=== PATIENT | female | born 1965 | race Caucasian/White ===

== ENCOUNTER 2019-12-26 11:13 | Outpatient (CLI) | payer MEDICARE, SELFPAY ==
--- NOTE | ~2019-12-26 | DEXA_ITS ---
Bone Density Report Name: Gillian Obregon Age: 54 Sex: Female Ethnicity: White Date of : 1965 Indication: osteopenia; monitoring treatment; Referring Provider: Estrellita Garza Study: Bone densitometry was performed. Exam Date: December 26, 2019 Accession number: [id number] Bone Density: Region BMD T-score Z-score Classification AP Spine (L1-L4) 0.780 -2.4 -1.4 Osteopenia Femoral Neck (Left) 0.548 -2.7 -1.7 Osteoporosis Total Hip (Left) 0.790 -1.2 -0.6 Osteopenia Total Hip Bilateral Avg 0.778 -1.4 -0.7 Osteopenia Femoral Neck (Right) 0.660 -1.7 -0.7 Osteopenia Total Hip (Right) 0.765 -1.5 -0.8 Osteopenia World Health Organization criteria for BMD impression classify patients as: Normal (T-score at or above -1.0), Osteopenia (T-score between -1.0 and -2.5), or Osteoporosis (T-score at or below -2.5). 10-year Fracture Risk: FRAX not reported because: Some T-score for Spine Total or Hip Total or Femoral Neck at or below -2.5 Previous Exams: Region Exam Age BMD T-score BMD Change BMD Change Date g/cm2 vs Baseline vs Previous AP Spine(L1-L4) 12/26/2019 54 0.780 -2.4 -0.076(-8.9%)* -0.076(-8.9%)* 06/26/2016 50 0.857 -1.7 Total Hip(Left) 12/26/2019 54 0.790 -1.2 0.028(3.7%)* 0.028(3.7%)* 06/26/2016 50 0.762 -1.5 Total Hip(Right) 12/26/2019 54 0.765 -1.5 0.031(4.2%)* 0.031(4.2%)* 06/26/2016 50 0.734 -1.7 *Denotes significance at 95% confidence level, LSC for AP Spine = 0.022 g/cm2, LSC for Total Hip = 0.027 g/cm2 Clinical Information Provided by Patient: Smokes Is being treated for osteoporosis Has used the following medications: Fosamax (i.e. alendronate), Calcium Patient maximum height was 60 Menopause Age: 49 No regular weight bearing exercise Does not regularly consume dairy products Drinks caffeinated beverages Onset of menses at age 13 Number of children 0 Impression: The patient has osteoporosis, based on the Left Femoral Neck T-score. The patient has risk factors, including: smoking. The BMD for the AP Spine(L1-L4) decreased, changing by -8.9% since the last DXA exam. Discussion: SIGNIFICANT BONE LOSS OBSERVED. Adherence to therapy (including calcium and vitamin D intake) should be assessed. If compliance is not a factor, review management and exclusion of secondary causes of bone loss. It is important to ask patients whether they are taking their medications and to encourage continued and appropriate compliance with th
--- NOTE | ~2019-12-26 | MM_ITS ---
EXAMINATION: MM screening justin BI w anika HISTORY: Screening mammogram TECHNIQUE: Craniocaudal and mediolateral oblique 3-D tomosynthesis images were obtained and synthetic 2-D images were generated. CAD analysis was submitted and interpreted. COMPARISON: 08/13/2018, 06/28/2017, 06/26/2016 bilateral digital screening mammogram examinations BREAST PARENCHYMAL COMPOSITION: The breasts are almost entirely fatty. FINDINGS: There is no evidence of suspicious mass, calcification, or architectural distortion to sugg est malignancy in either breast. There has been no suspicious interval change. IMPRESSION: 1. No mammographic evidence of malignancy. 2. Recommend routine screening mammography in one year. BI-RADS Category 1: Negative Reviewed, dictated and finalized at location A.
== END 2019-12-26 11:14 | disposition home or self-care (01) ==
PROVIDERS: PCP Family Medicine; Visit Provider Family Medicine
DX: Z12.31 Encounter for screening mammogram for malignant neoplasm of breast (principal); Z78.0 Asymptomatic menopausal state; M85.88 Other specified disorders of bone density and structure, other site; M81.0 Age-related osteoporosis without current pathological fracture; M85.852 Other specified disorders of bone density and structure, left thigh; M85.851 Other specified disorders of bone density and structure, right thigh
CPT/HCPCS: 77063; 77067; 77080

== ENCOUNTER 2022-04-04 15:10 | Outpatient (CLI) | payer MEDICARE, SELFPAY ==
--- NOTE | ~2022-04-04 | MM_ITS ---
EXAMINATION: MM screening justin BI w anika HISTORY: Screening mammogram TECHNIQUE: Craniocaudal and mediolateral oblique 3-D tomosynthesis images were obtained and synthetic 2-D images were generated. CAD analysis was submitted and interpreted. COMPARISON: 12/26/2019, 08/13/2018, 06/28/2017 bilateral screening mammogram examinations. BREAST PARENCHYMAL COMPOSITION: The breasts are almost entirely fatty. FINDINGS: Approximately 3 x 5 mm likely benign intramammary lymph node in the posterior outer mid rig ht breast. There is no evidence of suspicious mass, calcification, or architectural distortion to sug gest malignancy in either breast. There has been no suspicious interval change. IMPRESSION: 1. No mammographic evidence of malignancy. 2. Recommend routine screening mammography in one year. BI-RADS Category 2: Benign finding(s). Reviewed, dictated and finalized at location A.
--- NOTE | ~2022-04-04 | DEXA_ITS ---
Bone Density Report Name: SARAH FRASER Age: 56 Sex: Female Ethnicity: White Date of : 1965 Indication: osteopenia; monitoring treatment; height loss; postmenopausal Referring Provider: CHUCHO OBRIEN Study: Bone densitometry was performed. Exam Date: April 04, 2022 Accession number: [id number] Bone Density: Region BMD T-score Z-score Classification AP Spine(L1-L4) 0.898 -1.4 -0.2 Osteopenia Femoral Neck (Left) 0.529 -2.9 -1.8 Osteoporosis Total Hip (Left) 0.764 -1.5 -0.7 Osteopenia Femoral Neck (Right) 0.637 -1.9 -0.8 Osteopenia Total Hip (Right) 0.855 -0.7 0.0 Normal Total Hip Mean 0.810 -1.1 -0.4 Osteopenia World Health Organization criteria for BMD impression classify patients as: Normal (T-score at or above -1.0), Osteopenia (T-score between -1.0 and -2.5), or Osteoporosis (T-score at or below -2.5). 10-year Fracture Risk: FRAX not reported because: Some T-score for Spine Total or Hip Total or Femoral Neck at or below -2.5 Treated for osteoporosis Previous Exams: Region Exam Age BMD T-score BMD Change BMD Change Date g/cm2 vs Baseline vs Previous AP Spine (L1-L4) 04/04/2022 56 0.898 -1.4 0.042 (4.9%)# 0.118 (15.1%)# 12/26/2019 54 0.780 -2.4 -0.076 (-8.9%) -0.076 (-8.9%) 06/26/2016 50 0.857 -1.7 Total Hip(Left) 04/04/2022 56 0.764 -1.5 0.002 (0.3%)# -0.026 (-3.3%) 12/26/2019 54 0.790 -1.2 0.028 (3.7%)* 0.028 (3.7%)* 06/26/2016 50 0.762 -1.5 Total Hip(Right) 04/04/2022 56 0.855 -0.7 0.122 (16.6%)# 0.091 (11.9%)# 12/26/2019 54 0.765 -1.5 0.031 (4.2%)* 0.031 (4.2%)* 06/26/2016 50 0.734 -1.7 *Denotes significance at 95% confidence level, LSC for AP Spine = 0.022 g/cm2, LSC for Total Hip = 0.027 g/cm2 # Denotes dissimilar scan types or analysis methods Clinical Information Provided by Patient: Is being treated for osteoporosis Has used the following medications: Prolia (i.e. denosumab), Vitamin D, Calcium Patient maximum height was 61 Menopause Age: 49 No regular weight bearing exercise Drinks caffeinated beverages Onset of menses at age 15 Number of children 0 Impression: The patient has osteoporosis, based on the Left Femoral Neck T-score. No significant bone loss was observed. Discussion: PATIENT UNDER TREATMENT WITH NO SIGNIFICANT BMD LOSS SINCE LAST EXAM. In an untreated patient, BMD typically declines with age. A lack of decline or gain is usually a si
== END 2022-04-04 15:11 | disposition home or self-care (01) ==
PROVIDERS: PCP Family Medicine; Visit Provider Family Medicine
DX: Z12.31 Encounter for screening mammogram for malignant neoplasm of breast (principal); Z78.0 Asymptomatic menopausal state; M85.88 Other specified disorders of bone density and structure, other site; M81.0 Age-related osteoporosis without current pathological fracture; M85.852 Other specified disorders of bone density and structure, left thigh; M85.851 Other specified disorders of bone density and structure, right thigh
CPT/HCPCS: 77063; 77067; 77080

== ENCOUNTER 2023-08-28 09:34 | Outpatient (CLI) | payer MEDICARE, SELFPAY ==
--- NOTE | ~2023-08-28 | MM_ITS ---
EXAMINATION: MM screening justin BI w anika HISTORY: Screening TECHNIQUE: Craniocaudal and mediolateral oblique 3-D tomosynthesis images were obtained and synthetic 2-D images were generated. CAD analysis was submitted and interpreted. COMPARISON: Comparison to multiple prior studies sequentially, with oldest reviewed study dated 04/29. BREAST PARENCHYMAL COMPOSITION: The breasts are almost entirely fatty. FINDINGS: There is no evidence of suspicious mass, calcification, or architectural distortion to sugg est malignancy in either breast. There has been no suspicious interval change. IMPRESSION: 1. No mammographic evidence of malignancy. 2. Recommend routine screening mammography in one year. BI-RADS Category 1: Negative Reviewed, dictated and finalized at location A. T ARTIST
== END 2023-08-28 09:35 | disposition home or self-care (01) ==
LOC: ANHIMG 09:36
PROVIDERS: PCP Family Medicine; Visit Provider Nurse Practitioner Family
DX: Z12.31 Encounter for screening mammogram for malignant neoplasm of breast (principal)
CPT/HCPCS: 77063; 77067

== ENCOUNTER 2024-04-21 11:06 | Outpatient (CLI) | payer MEDICARE, SELFPAY ==
--- NOTE | ~2024-04-21 | DEXA_ITS ---
Bone Density Report Name: SARAH FRASER Age: 58 Sex: Female Ethnicity: White Date of : 1965 Indication: osteopenia; Referring Provider: CHUCHO OBRIEN Study: Bone densitometry was performed. Exam Date: April 21, 2024 Accession number: [id number] Bone Density: Region BMD T-score Z-score Classification AP Spine(L1, L2, L3) 0.981 -0.3 0.9 Normal Femoral Neck (Left) 0.542 -2.8 -1.6 Osteoporosis Total Hip (Left) 0.774 -1.4 -0.5 Osteopenia Femoral Neck (Right) 0.601 -2.2 -1.0 Osteopenia Total Hip (Right) 0.849 -0.8 0.1 Normal Total Hip Mean 0.811 -1.1 -0.2 Osteopenia World Health Organization criteria for BMD impression classify patients as: Normal (T-score at or above -1.0), Osteopenia (T-score between -1.0 and -2.5), or Osteoporosis (T-score at or below -2.5). 10-year Fracture Risk: FRAX not reported because: Some T-score for Spine Total or Hip Total or Femoral Neck at or below -2.5 Previous Exams: Region Exam Age BMD T-score BMD Change BMD Change Date g/cm2 vs Baseline vs Previous AP Spine (L1-L3) 04/21/2024 58 0.981 -0.3 0.128 (15.0%)* 0.057 (6.2%)# 04/04/2022 56 0.924 -0.9 0.071 (8.3%)# 0.134 (16.9%)# 12/26/2019 54 0.790 -2.1 -0.063 (-7.3%) -0.063 (-7.3%) 06/26/2016 50 0.853 -1.5 Total Hip(Left) 04/21/2024 58 0.774 -1.4 0.012 (1.6%) 0.010 (1.3%)# 04/04/2022 56 0.764 -1.5 0.002 (0.3%)# -0.026 (-3.3%) 12/26/2019 54 0.790 -1.2 0.028 (3.7%)* 0.028 (3.7%)* 06/26/2016 50 0.762 -1.5 Total Hip(Right) 04/21/2024 58 0.849 -0.8 0.115 (15.7%)* -0.007 (-0.8%) 04/04/2022 56 0.855 -0.7 0.122 (16.6%)# 0.091 (11.9%)# 12/26/2019 54 0.765 -1.5 0.031 (4.2%)* 0.031 (4.2%)* 06/26/2016 50 0.734 -1.7 *Denotes significance at 95% confidence level, LSC for AP Spine = 0.022 g/cm2, LSC for Total Hip = 0.027 g/cm2 # Denotes dissimilar scan types or analysis methods Clinical Information Provided by Patient: Has used the following medications: Prolia (i.e. denosumab), Vitamin D, Calcium Patient maximum height was 61 Menopause Age: 49 No regular weight bearing exercise Drinks caffeinated beverages Onset of menses at age 16 Number of children 0 Impression: The patient has osteoporosis, based on the Left Femoral Neck T-score. No significant bone loss was observed. Discussion: INCREASED RISK OF FRACTURE. BONE DENSITY IS UNDESIRABLY LOW AT ONE OR MORE SKELETAL SITES, C
== END 2024-04-21 11:07 | disposition home or self-care (01) ==
LOC: ANHIMG 11:07
PROVIDERS: PCP Family Medicine; Visit Provider Family Medicine
DX: Z78.0 Asymptomatic menopausal state (principal); M81.0 Age-related osteoporosis without current pathological fracture; M85.852 Other specified disorders of bone density and structure, left thigh; M85.851 Other specified disorders of bone density and structure, right thigh
CPT/HCPCS: 36415; 77080; 82040; 82310

== ENCOUNTER 2024-05-06 13:45 | Outpatient (CLI) | payer MEDICARE, SELFPAY ==
--- NOTE | ~2024-05-06 | CT_ITS ---
CT Scan of the Chest without Contrast: Clinical Indication: Lung cancer screening, nicotine dependence Technique: Contiguous sections were acquired throughout the chest without intravenous contrast. Dose reduction technique was used on this scan by utilizing automated exposure control and iterative recon struction technique. The dose-length product (DLP) was 225.91 mGy-cm. Findings: There is no evidence of any significant mediastinal, hilar or axillary lymphadenopathy. The coronary artery calcifications are present. There is no evidence of pleural or pericardial effusion. 5 mm groundglass nodule noted in the inferior right upper lobe. Images through the upper abdomen reveal no abnormalities. Impression: Lung RADS 2: Benign appearance. 12 month follow-up screening CT advised. Reviewed, dictated and finalized at location . Impression: Lung RADS 2: Benign appearance. 12 month follow-up screening CT advised.
== END 2024-05-06 13:46 | disposition home or self-care (01) ==
PROVIDERS: PCP Family Medicine; Visit Provider Family Medicine
DX: Z12.2 Encounter for screening for malignant neoplasm of respiratory organs (principal); Z87.891 Personal history of nicotine dependence
CPT/HCPCS: 71271

== ENCOUNTER 2024-09-19 10:51 | Outpatient (CLI) | payer MEDICARE, SELFPAY ==
--- NOTE | ~2024-09-19 | MM_ITS ---
EXAMINATION: MM screening justin BI w anika HISTORY: Screening mammogram TECHNIQUE: Craniocaudal and mediolateral oblique 3-D tomosynthesis images were obtained and synthetic 2-D images were generated. CAD analysis was submitted and interpreted. COMPARISON: 08/28/2023, 04/04/2022 BREAST PARENCHYMAL COMPOSITION:Not Dense. The breasts are almost entirely fatty FINDINGS: No suspicious mass, calcification, or architectural distortion are identified in either izaiah ast to suggest malignancy. There has been no suspicious interval change. IMPRESSION: No mammographic evidence of malignancy. Recommend routine screening mammography in one year. BI-RADS Category 1: Negative Reviewed, dictated and finalized at location . 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
--- OUTSIDE RECORDS SUMMARY | 2024-09-19 10:54 | XMS_ITS | Continuity of Care Document ---
Author Organization [employer] 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 Name Role Phone Poole PT,MPT,ATC, Preet Unavailable Unavai lable Procedures Procedure Date Therapeutic Activities Neuromuscular Re-Ed Therapeutic Exercise Therapeutic Activities Neuromuscular Re-Ed Therapeutic Exercise Progress Note Therapeutic Exercise Therapeutic Activities Neuromuscular Re-Ed Therapeutic Activities Neuromuscular Re-Ed Therapeutic Activities Neuromuscular Re-Ed Therapeutic Activities Neuromuscular Re-Ed Therapeutic Activities Neuromuscular Re-Ed Neuromuscular Re-Ed Therapeutic Activities Therapeutic Exercise Therapeutic Activities Neuromuscular Re-Ed Therapeutic Exercise Therapeutic Activities Neuromuscular Re-Ed Therapeutic Exercise Therapeutic Activities Neuromuscular Re-Ed Therapeutic Exercise Neuromuscular Re-Ed PT Evaluation High Complexity Therapeutic Activities Advance Directives Directive Yes / No Effective Date File Name No Information Encounters Encounter Description Practice Location Reason(s) For Visit Diagnoses Date Provider Providers Copied on Encounter [facility] [address] [facility], [place], [place], [id number], [place] tel:[phone] [place] No Information Dec-3 2 Virgilio Naranjo , [place], [place]. Referring Provider: [address], [place], [address]. tel:[phone] [facility], [place], [place], [id number], [place] tel:[phone] [place] No Information Yg-2 2 Modglin Gregg. . Referring Provider: [address], [place], [address]. tel:[phone] [facility] [facility], [place], [place], [id number], [place] tel:[phone] [place] No Information Dec- 2 Virgilio Naranjo , [place], [place]. Referring Provider: [address], [place], [address]. tel:[phone] [address] [place], [place] [id number] [facility], [place], [place], [id number], [place] tel:[phone] [place] No Information Dec- 2 Virgilio Naranjo [place], [place]. Referring Provider: [address], [place], [address]. tel:[phone] [address] [place], [place] [id number] [facility] [address], [place], [place], [id number], [place] tel:[phone] [place] No Information Dec- 2 Virgilio Naranjo [place], [place]. Referring Provider: [address], [place], [address]. tel:[phone] [address] [place] [address], [address], [place], [place], [id number], [place] tel:[phone] [place] No Information 2 Virgilio Lópezn. , [place], [place]. Referring Provider: [address], [place], [address]. tel:[phone] [address] [place] [address], [address], [id number], [place] tel:[phone] [place] No Information 2 Virgilio Oviedo. , [place], [place]. Referring Provider: [address], [place], [address]. tel:[phone] [address] [place] [address], [address], [id number], tel:[phone] [place] No Information 2 Virgilio Lópezn. , [place], [place]. Referring Provider: [address], [place], [address]. tel:[phone] [address] [place] [address], [address], [id number], [place] tel:[phone] [place] No Information 0 2 Virgilio Oviedo. , [place], [place]. Referring Provider: [address], [place], [address]. tel:[phone] [address] [place] [address], [address], [id number], [place] tel:[phone] [place] No Information 2 Virgilio Ov[place]o. , [place], [place]. Referring Provider: [address], [place], [address]. tel:[phone] [address] [place], [place] [address] [address], [id number], tel:[phone] [place] No Information 2 Virgilio Ov[place]o. , [place], [place]. Referring Provider: [address], [place], [address]. tel:[phone] [facility] [place], [address], [place], [place], [id number], [place] tel:[phone] [place] No Information 2 Virgilio Naranjo [place], [place], [place]. Referring Provider: Jamal Garza, [address] [facility] , [place], [address]. tel:[phone] Family History Family Member Type Diagnosis Age At Onset No Information Payers Payer name Insurance type Covered green party ID Authoriza tioral(s) [facility] Medicare Complete 16 [id number] Social History Type Description Quantity Date Captured Comments Sex Female Smoking Status No Information Chief Complaint And Reason For Visit No Information Reason For Referral Reason For Referral No Information History Of Present Illness Encounter Date Complaint History Of Prese nt Illness No Information Functional Status Date Functional Assessmen t No Information Instructions Date Instruction Additional Infor mation Giving encouragement to exercise Related to Overweight Giving encouragement to exercise Related to Overweight Giving encouragement to exercise Related to Overweight Giving encouragement to exercise Related to Overweight Assessments Type Assessment Date No Information Patient Care Teams Name Effective Dates (start - stop) Status Members No Information
--- OUTSIDE RECORDS SUMMARY | 2024-09-19 10:54 | XMS_ITS ---
Author Organization [facility] Address [facility] [address] [facility] [address] [place] [address] Care Team Providers Care Ore Digger Name Role Phone Jamal Garza MD Primary Care Provider Unavailable Africa De La Torre Unavailable [phone] Migration, Provider Unavailable Unavailable REASON FOR VISIT EMR-Min Medications Medication SIG (Take, Route, Frequency, Duration) Notes Start Date End Date Status amLODIPine Besylate 5 MG Oral 10/10/2023 Active Metoprolol Succinate ER 25 MG Oral 10/10/2023 Active fluvoxaMINE Maleate 100 MG Oral 10/10/2023 Active Prolia *Pick strength-form from [employer] for eRX* 10/10/2023 Active Denta 5000 Plus 1.1 % Dental 10/10/2023 Active Social History Sex Assigned At : Social History Observation Description Sex Assigned At Female Encounters Encounter Location Date Provider Diagnosis [facility] [address] [address] 12/15/2023 Provider Migration Plan Of Treatment Next Appt Details Provider Name:Emmanuelle Sutton, 09/21/2024 10:45:00 AM, [address] [facility] [address] [facility] [address], [place], [address], Progress Notes * RAUL FRASERB:1965 (58 yo F)Acc No.[id number]:12/15/2023 Patient: Osorio SARAH CASTRO :1965 A ge:58 Y S ex:Female Address:[address], [place], [address] Subjective: * Chief Complaints: * E MR-Min * Medical History: * 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 * Surgical History: T onsillectomy and adenoidectomy ([id number]) Tonsilectomy/adenoids 07/29/1971 * Hospitalization/Major Diagno stic Procedure: * Family History: M aternal Uncle: Depressive disorder . S ister: Bipolar disorder . S on: Attention deficit hyperactivity disorder . * Social History: M igrated Social History: M igrated Social History: Alcohol Intake: None 02/14/2023,Tobacco Years: Former smoker 10/13/2020,Smoking Status: 0 06/13/2023. * Medications: T akingDenta 5000 Plus 1.1 % Cream Dental amLODIPine Besylate 5 MG Tablet Oral Metoprolol Succinate ER 25 MG Tablet Extended Release 24 Hour Oral Prolia , Notes to Pharmacist: *Pick strength-form from [employer] for eRX*fluvoxaMINE Maleate 100 MG Tablet Oral Taking Denta 5000 Plus 1.1 % Cream Dental Taking amLODIPine Besylate 5 MG Tablet Oral Taking Metoprolol Succinate ER 25 MG Tablet Extended Release 24 Hour Oral Taking Prolia , Notes to Pharmacist: *Pick strength-form from [employer] for eRX*Taking fluvoxaMINE Maleate 100 MG Tablet Oral Objective: * Vitals: * Physical Examination: Assessment: Plan: * Treatment: * Procedure Codes: * true * Date: Generated for Florencia hernandez/Rex/Meghana on: 0 09/19/2024 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
--- OUTSIDE RECORDS SUMMARY | 2024-09-19 10:54 | XMS_ITS ---
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 for eRX* 10/10/2023 Active fluvoxaMINE Maleate 100 MG TAKE 1 TABLET BY MOUTH EVERY DAY FOR 90 DAYS Active Social History Tobacco Use: Social History Observation Description Date Details (start date - stop date) Former Smoker NA - NA Sex Assigned At : Social History Observation Description Sex Assigned At Female Tobacco Control (Standard) Question Answer Notes Tobacco use: Former smoker Section Notes: Social History Substance UseDo you or have you ever smoked tobacco?: Former smokerHow many years have you smoked tobacco?: 0How much tobacco do you smoke?: NoneWhen did you quit smoking?: 1-5 years since last cigarette (Notes: 2 years ago)Do you or have you ever used e-cigarettes or vape?: Never used electronic cigarettesDo you or have you ever used smokeless tobacco?: Never used smokeless tobaccoHow much tobacco do you chew?: noneWhat was the date of your most recent tobacco screening?: 10/10/2023Has tobacco cessation counseling been provided?: YesOn what date was tobacco cessation counseling provided?: 12/05/2018What is your level of alcohol consumption?: NoneHow many years have you consumed alcohol?: 2Do you use any illicit or recreational drugs?: NoWhich illicit or recreational drugs have you used?: NoneHave you used IV drugs?: NoWhat is your level of caffeine consumption?: ModerateEducation and OccupationWhat is the highest grade or level of school you have completed or the highest degree you have received?: High school graduateAre you currently employed?: NoWho is your employer?: Not workingMarriage and SexualityWhat is your relationship status?: WidowedAre you sexually active?: NoDo you use protection during sex?: NoHow many children do you have?: 0Home and EnvironmentAre there any guns present in your home?: NoAdvance DirectiveDo you have an advance directive?: NoDo you have a medical power of title attorney?: No Vital Signs Blood pressure systolic 112 mm Hg 06/11/20 24 Blood pressure diastolic 70 mm Hg 024 Heart Rate 72 /min 06/11/2024 Height 61.00 in 06/11/2024 Weight 186 lbs 06/11/2024 BMI 35.14 kg/m2 06/11/2024 Height-cm 154.94 cm 06/11/2024 Weight-kg 84.37 kg 06/11/2024 Encounters Encounter Location Date Provider Diagnosis [facility] [employer] [address] [address] 06/11/2024 Africa De La Torre Generalized anxiety disorder F41.1 ; Recurrent major depressive disorder, in full remission F33.42 and History of alcohol abuse F10.11 Assessments Encounter Date Diagnosis (ICD Code) Assessment Notes Treatment Notes Treatment Clinical Notes Section Notes 06/11/2024 Generalized anxiety disorder (ICD-10 - F41.1) doing well. decrease dose to 100 mg, 1 tablet a day. Watch for changes in mood, sleep, behaviors. follow up in 3 months, call and come in sooner if any concerns arise 06/11/2024 Recurrent major depressive disorder, in full remission (ICD-10 - F33.42) as above 06/11/2024 History of alcohol abuse (ICD-10 - F10.11) remission Plan Of Treatment Medication Medication Name Sig Start Date Stop Date Notes fluvoxaMINE Maleate 100 MG TAKE 1 TABLET BY MOUTH EVERY DAY FOR 90 DAYS Treatment Notes Assessment Notes Generalized anxiety disorder doing well. decrease dose to 100 mg, 1 tablet a day. Watch for changes in mood, sleep, behaviors. follow up in 3 months, call and come in sooner if any concerns arise Recurrent major depressive d isorder, in full remission as above History of alcohol abuse remission Next Appt Details Follow Up: 3 Months, Reason: Provider Name:Emmanuelle Sutton, 09/21/2024 10:45:00 AM, [address], [facility] [address], [place], [address], Progress Notes * EVELIORAULB:1965 (58 yo F)Acc No.[id number]:06/11/2024 Patient: SARAH ROBLEDO Provider: Gianna De La Torre :1965 A ge:58 Y S ex:Female Date:06/11/2024 Address:[facility] [address], [facility] Pcp:Jamal Marshall Subjective: * Chief Complaints: * F ollow up medication management * HPI: D epression screening: PHQ-9 L ittle interest or pleasure in doing things N ot at all, F eeling down, depressed, or hopeless N ot at all, T rouble falling or staying asleep, or sleeping too much N ot at all, F eeling tired or having little energy N ot at all, P oor appetite or overeating N ot at all, F eeling bad about yourself or that you are a failure, or have let yourself or your family down N ot at all, T rouble concentrating on things, such as reading the newspaper or watching television N ot at all, M oving or speaking so slowly that other people could have noticed; or the opposite, being so fidgety or restless that you have been moving around a lot more than usual N ot at all, T houghts that you would be better off or of hurting yourself in some way N ot at all, T otal Score 0 . I ntervention D epression Screening Findings N egative, S uicide Risk Assessment Performed . D epression Screening: PILI-7 (2018 Edition) F eeling nervous, anxious, or on edge?Not at all, N ot being able to stop or control worrying N ot at all, W orrying too much about different things N ot at all, T rouble relaxing N ot at all, B eing so restless that it is hard to sit still N ot at all, B ecoming easily annoyed or irritable N ot at all, F eeling afraid as if something awful might happen N ot at all, T otal PILI-7 Score 0 , I nterpretation of Total ( 0 to 4) No Anxiety. H istory of Presenting Problem: 58 y/o female here to follow up for depression and anxiety. Uses walker, presents with mother. Hearing aid, can be difficult to understand speech no med changes last visit, no side effects. d enies depression, SI. not worrying a lot. sleep: stay up until 1 am watching [employer] movies. and get up about 9am. Denies ingrid, psychosis. [facility]. going to dad's birthday libertarian tonight. E PACO: Denies, no cannabis or other substance use medical: no changes. Hearing aid (only one-no opening in other ear) note: passed in August 2021- 27 yrs. G eneral Follow Up: 58 y/o female here to follow up for depression and anxiety. Uses walker, presents with mother. Hearing aid, can be difficult to understand speech. HAs been stable on fluvoxamine 150 mg daily for quite some time. Looking back at previous encounter in January, she was doing really well, no changes were made. Today reports no depression, no anxiety, sleeping well, eating well with good apetite. No SI. Has interest and pleasure in activities, playing games with family, watching hallmark movies. Denies mood swings, irritabiliy, fatigue. M other is here during visit, endorses the same. They inquire about a possible decrease in dose. Agreed to cut dose down to 100 mg daily, see how she tolerates the change. * ROS: G eneral / Constitutional: Patient denies c hange in appetite, headache, lightheadedness, night sweats, sleep disturbance, weight gain, weight loss, change in appetite, headache, lightheadedness, night sweats, sleep disturbance, weight gain, weight loss. R espiratory: Patient denies c ough, pain with inspiration, shortness of breath, wheezing. C ardiovascular: Patient denies p alpitations, chest pain, dyspnea on exertion, swelling in hands / feet, dizziness. M usculoskeletal: Patient denies j oint stiffness, muscle aches, muscle spasms, weakness. N eurologic: Patient denies b alance difficulty, confusion, tic, tremor.? P sychiatric: Patient denies a uditory / visual hallucinations, delusions, suicidal thoughts, ingrid, psychosis, auditory / visual hallucinations, delusions, suicidal thoughts, ingrid, psychosis. C nadia Ariza [facility] for details. * Medical History: * Surgical History: T onsillectomy and adenoidectomy ([id number]) Tonsilectomy/adenoids 07/29/1971 * Hospitalization/Major Diagno stic Procedure: D enies Past Hospitalization * Social History: T obacco Use: T obacco Control (Standard) T obacco use: F ormer smoker. M igrated Social History: M igrated Social History: Alcohol Intake: None 02/14/2023,Tobacco Years: Former smoker 10/13/2020,Smoking Status: 0 06/13/2023. S ocial History Substance UseDo you or have you ever smoked tobacco?: Former smokerHow many years have you smoked tobacco?: 0How much tobacco do you smoke?: NoneWhen did you quit smoking?: 1-5 years since last cigarette (Notes: 2 years ago)Do you or have you ever used e-cigarettes or vape?: Never used electronic cigarettesDo you or have you ever used smokeless tobacco?: Never used smokeless tobaccoHow much tobacco do you chew?: noneWhat was the date of your most recent tobacco screening?: 10/10/2023Has tobacco cessation counseling been provided?: YesOn what date was tobacco cessation counseling provided?: 12/05/2018What is your level of alcohol consumption?: NoneHow many years have you consumed alcohol?: 2Do you use any illicit or recreational drugs?: NoWhich illicit or recreational drugs have you used?: NoneHave you used IV drugs?: NoWhat is your level of caffeine consumption?: ModerateEducation and OccupationWhat is the highest grade or level of school you have completed or the highest degree you have received?: High school graduateAre you currently employed?: NoWho is your employer?: Not workingMarriage and SexualityWhat is your relationship status?: WidowedAre you sexually active?: NoDo you use protection during sex?: NoHow many children do you have?: 0Home and EnvironmentAre there any guns present in your home?: NoAdvance DirectiveDo you have an advance directive?: NoDo you have a medical power of title attorney?: No. * Medications: T akingDenta 5000 Plus 1.1 % Cream Dental amLODIPine Besylate 5 MG Tablet Oral Metoprolol Succinate ER 25 MG Tablet Extended Release 24 Hour Oral Prolia , Notes to Pharmacist: *Pick strength-form from [employer] for eRX*fluvoxaMINE Maleate 100 MG Tablet TAKE 1 & 1/2 TABLET BY MOUTH EVERY DAY FOR 90 DAYS Medication List reviewed and reconciled with the patientTaking Denta 5000 Plus 1.1 % Cream Dental Taking amLODIPine Besylate 5 MG Tablet Oral Taking Metoprolol Succinate ER 25 MG Tablet Extended Release 24 Hour Oral Taking Prolia , Notes to Pharmacist: *Pick strength-form from [employer] for eRX*Taking fluvoxaMINE Maleate 100 MG Tablet TAKE 1 & 1/2 TABLET BY MOUTH EVERY DAY FOR 90 DAYS Medication List reviewed and reconciled with the patient * Allergies: N .K.D.A.no[Allergies Verified] Objective: * Vitals: B P:112/70mm Hg, HR:72/min, Wt:186lbs, Wt-k.37 kg, Ht: 61.00 in, Ht-cm: 154.94 cm, BMI:35.14Index, Body Surface Area: 1.9. * Examination: P sychiatry: Appearance: w ell-groomed. Abnormal body movements: n one. Affect / mood: a ppropriate. Attention: g ood. Attitude: c ooperative. Homicidal ideation: n one. Suicidal ideation: n one. Degree of awareness of surroundings: w ithin normal limits.? Delusions: n o. Hallucinations: n o. Insight: g ood. Judgement: g ood. Orientation: a wake, alert and oriented x 3. Perceptual disorders: n o perceptual disorder noted. Psychomotor activity: w ithin normal range. Speech / language: n ormal rate, volume, and articulation (RVR), clear and coherent, appropriate pitch/modulation. Thought content: a ppropriate. Thought process: i ntact. Assessment: * Assessment: 1. G eneralized anxiety disorder - F41.1 (Primary) 2 . R ecurrent major depressive disorder, in full remission - F33.42 3 . H istory of alcohol abuse - F10.11 Plan: * Treatment: 2. R ecurrent major depressive disorder, in full remission Notes: as above 3. H istory of alcohol abuse Notes: remission * Procedure Codes: 9 6127 BEHAV ASSMT W/SCORE & DOCD/STAND [id number] VISIT COMPLEXITY INHERENT TO ONGOING CARE RELATED TO A PATIENT'S SINGLE, SERIOUS CONDITION OR A COMPLEX CONDITION * Follow Up: 3 Months * Billing Information: * Visit Code: 00716 OFFICE OUTPATIENT VISIT 25 MINUTES DETAILED HISTORY AND EXAM/MODERATE MEDICAL DECISION MAKING. * Procedure Codes: 54195 BEHAV ASSMT W/SCORE & DOCD/STAND INSTRUMENT. G2211 VISIT COMPLEXITY INHERENT TO ONGOING CARE RELATED TO A PATIENT'S SINGLE, SERIOUS CONDITION OR A COMPLEX CONDITION. * TENDER Electronically co-signed by Daniel Prasad MD on 06/12/2024 at 08:28 AM BUOY TENDER Sign off status: Completed true * Provider: Gianna De La Torre Date: 08/11/2023 Generated for Florencia hernandez/Rex/Meghana on: 0 09/19/2024 10:53 AM BUOY TENDER History and Physical Notes * HPI (History of Present Illness) Category Sub-Category Detail Notes Category Not es Depression screening PHQ-9 Little inte rest or pleasure in doing things: Not at all Feeling down, depressed, or hopeless: No t at all Trouble falling or staying asleep, or sl eeping too much: Not at all Feeling tired or having little energy: N ot at all Poor appetite or overeating: Not at all Feeling bad about yourself o r that you are a failure, or have let yourself or your family down: Not at all Trouble concentrating on thi ngs, such as reading the newspaper or watching television: Not at all Moving or speaking so slowly that other people could have noticed; or the opposite, being so fidgety or restless that you have been moving around a lot more than usual: Not at all Thoughts that you would be b tigre off or of hurting yourself in some way: Not at all Total Score: 0 Intervention Depression Screening Findings: N egative Suicide Risk Assessment Performed: ____ Depression Screening PILI-7 (2018 Edition) Feelin g nervous, anxious, or on edge: Not at all Not being able to stop or control worryi ng: Not at all Worrying too much about different things : Not at all Trouble relaxing: Not at all Being so restless that it is hard to sit still: Not at all Becoming easily annoyed or irritable: No t at all Feeling afraid as if something awful priscila ht happen: Not at all Total PILI-7 Score: 0 Interpretation of Total: (0 to 4) No Anx iety Examination Category Sub-Category Detail Notes Category Not es Psychiatry Appearance: well-groomed Attitude: cooperative Psychomotor activity: within normal rang e Abnormal body movements: none Attention: good Degree of awareness of surroundings: wit hin normal limits Orientation: awake, alert and marita ented x 3 Affect / mood: appropriate Speech / language: normal rate, volume, and articulation (RVR), clear and coherent, appropriate pitch/modulation Insight: good Judgement: good Thought process: intact Thought content: appropriate Perceptual disorders: no perceptual diso rder noted Suicidal ideation: none Homicidal ideation: none Delusions: no Hallucinations: no
--- OUTSIDE RECORDS SUMMARY | 2024-09-19 10:54 | XMS_ITS | Patient Health Record ---
Author Organization [facility] [employer] [facility] Address [address] [place] [address] Care Team Providers Care Parcel Post Order Clerk Name Role Phone Greg RIOS, Jamal Primary Care Provider Unavailable Africa De La Torre Unavailable [phone] Sujey Childers Unavailable [phone] Migration, Provider Unavailable Unavailable Allergies No Known Allergies Reason For Referral No Information Medications Medication SIG (Take, Route, Frequency, Duration) Notes Start Date End Date Status Denta 5000 Plus 1.1 % Dental 10/10/2023 Active amLODIPine Besylate 5 MG Oral 10/10/2023 Active Metoprolol Succinate ER 25 MG Oral 10/10/2023 Active Prolia *Pick strength-form from [employer] for eRX* 10/10/2023 Active fluvoxaMINE Maleate 100 MG TAKE 1 TABLET BY MOUTH EVERY DAY FOR 90 DAYS Active Immunizations Vaccine Route Administration Date Status Comme nts Influenza virus vaccine, quadrivalent (IIV4), split virus, 0.25 mL dosage Unknown 05/28/2018 Administered Influenza virus vaccine, quadrivalent (IIV4), split virus, 0.25 mL dosage Unknown 05/10/2020 Administered Influenza virus vaccine, quadrivalent (IIV4), split virus, 0.25 mL dosage Unknown 05/30/2021 Administered Influenza, injectable, MDCK, preservative free Unknown 05/12/2018 Administered Novel [id number], preservative free Unknown 06/01/2019 Administered Novel [id number], preservative free Unknown 05/10/2020 Administered [employer] Covid-19 Vac cine 2nd dose Unknown 09/29/2020 Administered [employer] Covid-19 Vac cine 2nd dose Unknown 10/20/2020 Administered [employer] Covid-19 Vac cine 2nd dose Unknown 05/30/2021 Administered Social History Tobacco Use: Social History Observation [...] NoDo you have a medical power of district attorney?: No Social History Substance UseDo you or have [...] NoDo you have a medical power of district attorney?: No Problems Problem Type SNOMED Code ICD Code Onset Dates Problem Status W/U Status Risk Notes Problem Generalized anxiety disorder (79551555) Generalized anxiety disorder (F41.1) Active confirmed Problem History of alcohol abuse (255299104) History of alcohol abuse (F10.11) Active confirmed Problem Recurrent major depression in full remission (15780506) Recurrent major depressive disorder, in full remission (F33.42) Active confirmed Vital Signs Heart Rate 72 /min 06/11/2024 Height-cm 154.94 cm 06/11/2024 Blood pressure diastolic 70 mm Hg 06/11/2024 Weight-kg 84.37 kg 06/11/2024 Height 61.00 in 06/11/2024 Blood pressure systolic 112 mm Hg 06/11/2024 Weight 186 lbs 06/11/2024 BMI 35.14 kg/m2 06/11/2024 Encounters Encounter Location Date Provider Diagnosis [facility] [address] [facility] [address] [place] [address] 10/10/2023 uSjey Childers Major depressive disorder, recurrent, in remission, unspecified F33.40 ; Alcohol abuse, uncomplicated F10.10 and Generalized anxiety disorder F41.1 [facility] [place] [id number] [facility] [address] [place] [address] 02/06/2024 Sujey Childers Generalized anxiety disorder F41.1 ; Recurrent major depressive disorder, in full remission F33.42 and History of alcohol abuse F10.11 [facility] [address] [facility] [address] [place] [address] 06/11/2024 Africa De La Torre Generalized anxiety disorder F41.1 ; Recurrent major depressive disorder, in full remission F33.42 and History of alcohol abuse F10.11 [facility] [address] [facility] [address] [place] [address] 12/14/2023 [facility] [address] [address] 12/15/2023 Provider Migration Assessments Encounter Date Diagnosis (ICD Code) Assessment Notes Treatment Notes Treatment Clinical Notes Section Notes 02/06/2024 Generalized anxiety disorder (ICD-10 - F41.1) cont fluvoxamine 150mg daily -has extra bottle or two, reports is taking every day and 1.5 tabs, uses pill organizer. they do not want refill until they request stableno new orders f/u in 4 months earlier if needed 02/06/2024 Recurrent major depressive disorder, in full remission (ICD-10 - F33.42) stable with fluvoxamine 06/11/2024 Generalized anxiety disorder (ICD-10 - F41.1) doing well. decrease dose to 100 mg, 1 tablet a day. Watch for changes in mood, sleep, behaviors. follow up in 3 months, call and come in sooner if any concerns arise 10/10/2023 Alcohol abuse, uncomplicated (ICD-10 - F10.10) 10/10/2023 Major depressive disorder, recurrent, in remission, unspecified (ICD-10 - F33.40) 10/10/2023 Generalized anxiety disorder (ICD-10 - F41.1) 02/06/2024 History of alcohol abuse (ICD-10 - F10.11) denies alcohol use; avoid 06/11/2024 Recurrent major depressive disorder, in full remission (ICD-10 - F33.42) as above 06/11/2024 History of alcohol abuse (ICD-10 - F10.11) remission Plan Of Treatment Next Appt Details Provider Name:Emmanuelle Sutton, 09/21/2024 10:45:00 AM, [address], [address], [place], [address], Insurance Providers Payer Name Payer Address Payer Phone Subscriber Number Group Number Insured Name Patient Relationship to Insured Coverage Start Date Coverage End Date [employer] Medicare Replacement/ Advantage - Hmo [address] [address] [place] [address] [id number] SARAH FRASER Self - patient is the insured Medical (General) History Medical History History ICD Code Problems: Current drinker Generalized anxiety disorder History of alcohol abuse Mild recurrent major depression Normal grief reaction Obesity Recurrent major depression in partial re mission Recurrent major depression in remission Severe recurrent major depression withou t psychotic features Unsteady gait , Surgical History Surgery Date(Month/Year) Tonsillectomy and adenoidectomy (2526677 0) Tonsilectomy/adenoids 07/29/1971
--- OUTSIDE RECORDS SUMMARY | 2024-09-19 10:54 | XMS_ITS ---
Author Organization [facility] [employer] Address [address] [place] [address] Care Team Providers Care Student Career Development Specialist Name Role Phone Jamal Garza MD Primary Care Provider Unavailable Africa De La Torre Unavailable [phone] Sujey Childers Unavailable [phone] Allergies No Known Allergies REASON FOR VISIT follow up medication management Medications Medication SIG (Take, Route, Frequency, Duration) Notes Start Date End Date Status Denta 5000 Plus 1.1 % Dental 10/10/2023 Active Prolia *Pick strength-form from [employer] for eRX* 10/10/2023 Active fluvoxaMINE Maleate 100 MG Oral 10/10/2023 Active amLODIPine Besylate 5 MG Oral 10/10/2023 Active Metoprolol Succinate ER 25 MG Oral 10/10/2023 Active Social History Sex Assigned At : Social History Observation Description Sex Assigned At Female Section Notes: Social History Substance UseDo you [...] NoDo you have a medical power of commercial litigation attorney?: No Problems Problem Type SNOMED Code ICD Code Onset Dates Problem Status W/U Status Risk Notes Problem Generalized anxiety disorder (70732856) Generalized anxiety disorder (F41.1) Active confirmed Problem History of alcohol abuse (549935984) History of alcohol abuse (F10.11) Active confirmed Problem Recurrent major depression in full remission (91658863) Recurrent major depressive disorder, in full remission (F33.42) Active confirmed Vital Signs Blood pressure systolic 147 mm Hg 02/06/20 24 Blood pressure diastolic 83 mm Hg 024 Heart Rate 68 /min 02/06/2024 Height 61.00 in 02/06/2024 Weight 182 lbs 02/06/2024 BMI 34.38 kg/m2 02/06/2024 Height-cm 154.94 cm 02/06/2024 Weight-kg 82.55 kg 02/06/2024 Encounters Encounter Location Date Provider Diagnosis [facility] [employer] [facility] [address] [address] 02/06/2024 Sujey Childers Generalized anxiety disorder F41.1 [...] remission (ICD-10 - F33.42) stable with fluvoxamine 02/06/2024 History of alcohol abuse (ICD-10 - F10.11) denies alcohol use; avoid Plan Of Treatment Treatment Notes Assessment Notes Generalized anxiety disorder cont fluvoxamine 150mg daily -has extra bottle or two, reports is taking every day and 1.5 tabs, uses pill organizer. they do not want refill until they request Recurrent major depressive d isorder, in full remission stable with fluvoxamine History of alcohol abuse denies alcohol use; avoid Next Appt Details Follow Up: 4 Months, Reason: Provider Name:Emmanuelle Sutton, 09/21/2024 10:45:00 AM, [address], [facility] [address], [place], [address], Progress Notes * RAUL FRASERB:1965 (58 yo F)Acc No.[id number]:02/06/2024 Patient: SARAH ROBLEDO Provider: WILFRIDO WILD :1965 A ge:58 Y S ex:Female Date:02/06/2024 Address:[place] [facility] Subjective: * Chief Complaints: * 1 . Follow up medication management. * HPI: D epression screening: PHQ-9 L ittle interest or pleasure in doing things N ot at all. H istory of Presenting Problem: 58 y/o female here to follow up for depression and anxiety. Uses walker, presents with mother. Hearing aid, can be difficult to understand speech no med changes last visit, no side effects denies depression, SI. not worrying a lot. sleep: stay up until 1 am watching hallmark movies. and get up about 9am. Denies ingrid, psychosis. going to the to exercise, twice a week. going to dad's birthday constitution party tonight. ETOH: Denies no cannabis or other substance use medical: no changes. Hearing aid (only one-no opening in other ear) note: passed in August 2021- 27 yrs. * ROS: P sychiatric: Patient denies a nxiety, auditory / visual hallucinations, delusions, depressed mood, difficulty sleeping, substance abuse, suicidal thoughts, ingrid, psychosis, panic attacks. * Medical History: P roblems: Current drinker, Generalized anxiety disorder, History of alcohol abuse, Mild recurrent major depression, Normal grief reaction, Obesity, Recurrent major depression in partial remission, Recurrent major depression in remission, Severe recurrent major depression without psychotic features, Unsteady gait, ,. * Surgical History: T onsillectomy and adenoidectomy ([id number]) , Tonsilectomy/adenoids 07/29/1971. * Hospitalization/Major Diagno stic Procedure: D enies Past Hospitalization. * Family History: M bronwyn Uncle: Depressive disorder . S ister: Bipolar [...] NoDo you have a medical power of commercial litigation attorney?: No. * Medications: T aking Denta 5000 Plus 1.1 % Cream Dental , Taking amLODIPine Besylate 5 MG Tablet Oral , Taking Metoprolol Succinate ER 25 MG Tablet Extended Release 24 Hour Oral , Taking Prolia , Notes to Pharmacist: *Pick strength-form from [employer] for eRX*, Taking fluvoxaMINE Maleate 100 MG Tablet Oral , Medication List reviewed and reconciled with the patient * Allergies: N .K.D.A. Objective: * Vitals: B P:147/83mm Hg, HR:68/min, Wt:182lbs, Wt-k.55 kg, Ht: 61.00 in, Ht-cm: 154.94 cm, BMI:34.38Index, Body Surface Area: 1.88. * Examination: P sychiatry: C onstitutional: General Appearance alert, well-groomed, clean, well developed, and appears well rested. Behavior: cooperative, calm, pleasant, and eye contact good. Musculoskeletal: Gait And Stance: a ssistive device used; w alker. Muscle Strength and tone no tremor, tics, or involuntary movements (dyskinesia). Psychiatric: Thought Processes: logical, coherent thought processes, and goal-directed thought process. Thought Content: No suicidal ideations, plan or intent. u nremarkable, no ideas of reference, obsessions. Mood: euthymic. Speech: volume is normal and language is appropriate for education level; m umbles. Associations: no loosening of associations or word salad and no clang associations. Abnormal or Psychotic thoughts: no hallucinations. Affect: pleasant and congruent to thought content. Insight: is aware of psychiatric problems. Judgment: Fair. Orientation: oriented to person, place, situation, and time. Assessment: * Assessment: 1. G eneralized anxiety disorder - F41.1 (Primary) 2 . R ecurrent major depressive disorder, in full remission - F33.42 3 . H istory of alcohol abuse - F10.11 Plan: * Treatment: 2. R ecurrent major depressive disorder, in full remission Notes:stable with fluvoxamine 3. H istory of alcohol abuse Notes:denies alcohol use; avoid * Follow Up: 4 Months * Billing Information: * Visit Code: [id number] OFFICE OUTPATIENT VISIT 15 MINUTES EXPANDED HISTORY AND EXAM/LOW MEDICAL DECISION MAKING. * Procedure Codes: * Sign off status: Completed true * Provider: WILFRIDO WILD Date: 0 02/06/2024 Generated for Florencia hernandez/Rex/Meghana on: 0 09/19/2024 10:53 AM HOME THEATER EXPERT History and Physical Notes * HPI (History of Present Illness) Category Sub-Category Detail Notes Category Not es Depression screening PHQ-9 Little inte rest or pleasure in doing things: Not at all Examination Category Sub-Category Detail Notes Category Not es Psychiatry Constitutional: General Appearance alert, well-groomed, clean, well developed, and appears well rested. Behavior: cooperative, calm, pleasant, and eye contact good. Musculoskeletal: Gait And Stance: assistive device used; walker. Muscle Strength and tone no tremor, tics, or involuntary movements (dyskinesia). Psychiatric: Thought Processes: logical, coherent thought processes, and goal-directed thought process. Thought Content: No suicidal ideations, plan or intent. unremarkable, no ideas of reference, obsessions. Mood: euthymic. Speech: volume is normal and language is appropriate for education level; mumbles. Associations: no loosening of associations or word salad and no clang associations. Abnormal or Psychotic thoughts: no hallucinations. Affect: pleasant and congruent to thought content. Insight: is aware of psychiatric problems. Judgment: Fair. Orientation: oriented to person, place, situation, and time.
== END 2024-09-19 10:52 | disposition home or self-care (01) ==
PROVIDERS: PCP Family Medicine; Visit Provider Family Medicine
DX: Z12.31 Encounter for screening mammogram for malignant neoplasm of breast (principal)
CPT/HCPCS: 77063; 77067

== ENCOUNTER 2024-10-29 10:32 | Outpatient (CLI) | payer MEDICARE, SELFPAY ==
[2024-10-29 11:00] LABS: Alanine Aminotransferase 26 U/L (6-35); Albumin Level 4.5 g/dL (3.5-5.1); Alkaline Phosphatase 73 U/L (38-126); Anion Gap 12 mmol/L (4-12); Aspartate Amino Transferase 46 U/L (14-36); Bilirubin,Total 0.5 mg/dL (0.2-1.3); Blood Urea Nitrogen 21 mg/dL (7-17); Calcium 9.9 mg/dL (8.4-10.2); Carbon Dioxide 30 mmol/L (22-30); Chloride 100 mmol/L (98-107); Estimated Glomerular Filt Rate > 60; Glucose 113 mg/dL (65-110); Potassium 3.7 mmol/L (3.4-5.0); Sodium 142 mmol/L (137-145)
--- OUTSIDE RECORDS SUMMARY | 2024-10-29 11:23 | XMS_ITS ---
Author Organization [facility] [employer] Address [address] [place] [address] Care Team Providers Care Bisque Tile Burner Name Role Phone Jamal Garza MD Primary Care Provider Unavailable Africa De La Torre Unavailable [phone] Allergies No Known Allergies REASON FOR VISIT f/u Medications Medication SIG (Take, Route, Frequency, Duration) Notes Start Date End Date Status amLODIPine Besylate 5 MG Oral 10/10/2023 Active Metoprolol Succinate ER 25 MG Oral 10/10/2023 Active Denta 5000 Plus 1.1 % Dental 10/10/2023 Active fluvoxaMINE Maleate 100 MG TAKE 1 TABLET BY MOUTH EVERY DAY FOR 90 DAYS for 90 days Active Prolia *Pick strength-form from [employer] for eRX* 10/10/2023 Active Social History Tobacco Use: Social History Observation Description Date Details (start date - stop date) Former Smoker NA - NA Sex Assigned At : Social History Observation Description Sex Assigned At Female Tobacco Control (Standard) Question Answer Notes Tobacco use: Former smoker Vital Signs Blood pressure systolic 113 mm Hg 09/21/19 25 Blood pressure diastolic 69 mm Hg 025 Heart Rate 71 /min 09/21/2024 Height 61.00 in 09/21/2024 Weight 182 lbs 09/21/2024 BMI 34.38 kg/m2 09/21/2024 Height-cm 154.94 cm 09/21/2024 Weight-kg 82.55 kg 09/21/2024 Encounters Encounter Location Date Provider Diagnosis [facility] [email or web address] [facility] [address] [place] [address] 09/21/2024 Africa De La Torre Generalized anxiety disorder F41.1 ; Recurrent major depressive disorder, in full remission F33.42 and History of alcohol abuse F10.11 Assessments Encounter Date Diagnosis (ICD Code) Assessment Notes Treatment Notes Treatment Clinical Notes Section Notes 09/21/2024 Generalized anxiety disorder (ICD-10 - F41.1) doing well, a little more emotional lately, but managing overall Continue 100 mg, 1 tablet a day. No change at this time Watch for changes in mood, sleep, behaviors. follow up in 3 months, call and come in sooner if any concerns arise doing well, a little more emotional lately, but managing overall Continue 100 mg, 1 tablet a day. No change at this time Watch for changes in mood, sleep, behaviors. follow up in 3 months, call and come in sooner if any concerns arise 09/21/2024 Recurrent major depressive disorder, in full remission (ICD-10 - F33.42) as above doing well, a little more emotional lately, but managing overall Continue 100 mg, 1 tablet a day. No change at this time Watch for changes in mood, sleep, behaviors. follow up in 3 months, call and come in sooner if any concerns arise 09/21/2024 History of alcohol abuse (ICD-10 - F10.11) remission doing well, a little more emotional lately, but managing overall Continue 100 mg, 1 tablet a day. No change at this time Watch for changes in mood, sleep, behaviors. follow up in 3 months, call and come in sooner if any concerns arise Plan Of Treatment Medication Medication Name Sig Start Date Stop Date Notes fluvoxaMINE Maleate 100 MG TAKE 1 TABLET BY MOUTH EVERY DAY FOR 90 DAYS for 90 days Treatment Notes Assessment Notes Generalized anxiety disorder doing well, a little more emotional lately, but managing overall Continue 100 mg, 1 tablet a day. No change at this time Watch for changes in mood, sleep, behaviors. follow up in 3 months, call and come in sooner if any concerns arise Recurrent major depressive d isorder, in full remission as above History of alcohol abuse remission Next Appt Details Follow Up: 3 Months, Reason: Provider Name:Africa johnston, 12/17/2024 11:00:00 AM, [address] [facility] [address], [facility] [address], [place], [address], Progress Notes * CHINO FRASERADOB:1965 (58 yo F)Acc No.[id number]:09/21/2024 Patient: SARAH ROBLEDO Provider: Gianna De La Torre :1965 A ge:58 Y S ex:Female Date:09/21/2024 Address[address] [address] [id number] Pcp:Jamal Marshall Subjective: * Chief Complaints: * F /u * HPI: D epression screening: PHQ-9 L ittle interest or pleasure in doing things?Not at all F eeling down, depressed, or hopeless N ot at all T rouble falling or staying asleep, or sleeping too much N ot at all F eeling tired or having little energy N ot at all P oor appetite or overeating N ot at all F eeling bad about yourself or that you are a failure, or have let yourself or your family down N ot at all T rouble concentrating on things, such as reading the newspaper or watching television N ot at all M oving or speaking so slowly that other people could have noticed; or the opposite, being so fidgety or restless that you have been moving around a lot more than usual N ot at all T houghts that you would be better off or of hurting yourself in some way N ot at all T otal Score 0 Intervention D epression Screening Findings N egative S uicide Risk Assessment Performed 0 09/21/2024 D epression Screening: PILI-7 (2018 Edition) F eeling nervous, anxious, or on edge N ot at all N ot being able to stop or control worrying?Not at all W orrying too much about different things N ot at all T rouble relaxing N ot at all B eing so restless that it is hard to sit still N ot at all B ecoming easily annoyed or irritable N ot at all F eeling afraid as if something awful might happen N ot at all T otal PILI-7 Score 0 I nterpretation of Total ( 0 to 4) No Anxiety H istory of Presenting Problem: 58 y/o female here to follow up for depression and anxiety. Uses walker, presents with mother. Hearing aid, can be difficult to understand speech Last visit decreased dose to 100 mg daily. Reports mood has been good with no concerns about feeling anxious or having worries. Sleeping okay. Mentions getting a little weepy around the anniversary of her 's passing, which occurred 3 years ago. Engages in social activities such as game nights, playing cards, and visiting the [employer] alley. Got a litte emotional one evening when plans changed and unable to go to [place], but coped well Reports no falls. No concerns with memory Occasionally consumes non-alcoholic beer ([employer] and [place] light zero) when attending social events like [employer] or [employer]. Makes blankets through crocheting as a hobby. Spends time with father. note: passed in August 2021- 27 yrs. * ROS: G eneral / Constitutional: Patient denies f atigue, sleep disturbance. ? C ardiovascular: Patient denies p alpitations, high blood pressure. ? G astrointestinal: Patient denies v omiting, nausea, change in bowel habits.? M usculoskeletal: Patient denies j oint stiffness, muscle aches, muscle spasms, weakness. N eurologic: Patient denies c onfusion, tremor, tic. P sychiatric: Patient denies a uditory / visual hallucinations, delusions, suicidal thoughts, ingrid, psychosis, auditory / visual hallucinations, delusions, suicidal thoughts, ingrid, psychosis. C nadia Ariza [facility] for details. P erformance Met: N ormal blood pressure reading documented, follow-up not required ( G8783). * Medical History: * Surgical History: T onsillectomy and adenoidectomy ([id number]) Tonsilectomy/adenoids 07/29/1971 * Hospitalization/Major Diagno stic Procedure: * Family History: M radhikarnal Uncle: Depressive disorder . S ister: Bipolar disorder . S on: Attention deficit hyperactivity disorder . * Social History: T obacco Use: T obacco Control (Standard) T obacco use: F ormer smoker D rug/Alcohol: D o you smoke marijuana?: No. Do you drink alcohol?: No. * Medications: T akingDenta 5000 Plus 1.1 % Cream Dental amLODIPine Besylate 5 MG Tablet Oral Metoprolol Succinate ER 25 MG Tablet Extended Release 24 Hour Oral Prolia , Notes to Pharmacist: *Pick strength-form from [employer] for eRX*fluvoxaMINE Maleate 100 MG Tablet TAKE 1 TABLET BY MOUTH EVERY DAY FOR 90 DAYS Medication List reviewed and reconciled with the patientTaking Denta 5000 Plus 1.1 % Cream Dental Taking amLODIPine Besylate 5 MG Tablet Oral Taking Metoprolol Succinate ER 25 MG Tablet Extended Release 24 Hour Oral Taking Prolia , Notes to Pharmacist: *Pick strength-form from [employer] for eRX*Taking fluvoxaMINE Maleate 100 MG Tablet TAKE 1 TABLET BY MOUTH EVERY DAY FOR 90 DAYS Medication List reviewed and reconciled with the patient * Allergies: Jovan .Justinano[Allergies Verified] Objective: * Vitals: B P:113/69mm Hg, HR:71/min, Wt:182lbs, Wt-k.55 kg, Ht: 61.00 in, Ht-cm: 154.94 cm, BMI:34.38Index, Body Surface Area: 1.88. * Examination: P sychiatry: Appearance: w ell-groomed. [...] H istory of alcohol abuse - F10.11 doing well, a little more em otional lately, but managing overall Continue 100 mg, 1 tablet a day. No change at this time Watch for changes in mood, sleep, behaviors. follow up in 3 months, call and come in sooner if any concerns arise Plan: * Treatment: 2. R ecurrent major depressive disorder, in full remission Notes: as above 3. H istory of alcohol abuse Notes: remission * Procedure Codes: G 8783 NORMAL BP READING DOC F/U NOT [id number] BEHAV ASSMT W/SCORE & DOCD/STAND [id number] MOST RECENT SYSTOLIC BP < 140MM [id number] MOST RECENT DIASTOLIC BP < 90MM [id number] VISIT COMPLEXITY INHERENT TO ONGOING CARE RELATED TO A PATIENT'S SINGLE, SERIOUS CONDITION OR A COMPLEX CONDITION * Follow Up: 3 Months * Billing Information: * Visit Code: [id number] OFFICE OUTPATIENT VISIT 25 MINUTES DETAILED HISTORY AND EXAM/MODERATE MEDICAL DECISION MAKING. * Procedure Codes: G8783 NORMAL BP READING DOC F/U NOT RQR. 42423 BEHAV ASSMT W/SCORE & DOCD/STAND INSTRUMENT. G8752 MOST RECENT SYSTOLIC BP < 140MM HG. G8754 MOST RECENT DIASTOLIC BP < 90MM HG. G2211 VISIT COMPLEXITY INHERENT TO ONGOING CARE RELATED TO A PATIENT'S SINGLE, SERIOUS CONDITION OR A COMPLEX CONDITION. * HEALTH AIDE Sign off status: Completed true * Provider: Gianna De La Torre Date: 0 09/21/2024 Generated for Florencia hernandez/Rex/Meghana on: 0 10/29/2024 11:23 AM CDT History and Physical Notes * HPI (History [...] Findings: N egative Suicide Risk Assessment Performed: 09/21 Depression Screening PILI-7 (2018 Edition) Feelin g [...]
--- OUTSIDE RECORDS SUMMARY | 2024-10-29 11:23 | XMS_ITS ---
Author Organization [facility] [employer] Address [address] [place] [address] Care Team Providers Care Director Emergency Department Name Role Phone Jamal Garza MD Primary Care Provider Unavailable Africa De La Torre Unavailable [phone] Allergies No Known Allergies REASON FOR VISIT follow up medication management Medications Medication SIG (Take, Route, Frequency, Duration) Notes Start Date End Date Status Denta 5000 Plus 1.1 % Dental 10/10/2023 Active amLODIPine Besylate 5 MG Oral 10/10/2023 Active Metoprolol Succinate ER 25 MG Oral 10/10/2023 Active Prolia *Pick strength-form from [employer] for eRX* 10/10/2023 Active fluvoxaMINE Maleate 100 [...] NoDo you have a medical power of attorney law clerk?: No Vital Signs Blood pressure systolic 112 mm Hg 06/11/20 24 Blood pressure diastolic 70 mm Hg 024 Heart Rate 72 /min 06/11/2024 Height 61.00 in 06/11/2024 Weight 186 lbs 06/11/2024 BMI 35.14 kg/m2 06/11/2024 Height-cm 154.94 cm 06/11/2024 Weight-kg 84.37 kg 06/11/2024 Encounters Encounter Location Date Provider Diagnosis [facility] [address] [address] 06/11/2024 Africa De La Torre Generalized anxiety [...] Reason: Provider Name:Africa johnston, 12/17/2024 11:00:00 AM, [address], [facility] [address], [place], [address], Progress Notes * EVELIOCHINO HADDADLEAHB:1965 (58 yo F)Acc No.[id number]:06/11/2024 Patient: SARAH ROBLEDO Provider: Gianna De La Torre :1965 A ge:58 Y S ex:Female Date:06/11/2024 Address:[facility] [address] [facility] Pcp:Jamal Marshall Subjective: * Chief Complaints: * [...] suicidal thoughts, ingrid, psychosis. C nadia Ariza [facility] for details. * Medical History: * Surgical History: T onsillectomy and adenoidectomy ([id number]) Tonsilectomy/adenoids 07/29/1971 * Hospitalization/Major Diagno stic Procedure: [...] NoDo you have a medical power of attorney law clerk?: No. * Medications: T akingDenta 5000 Plus 1.1 % Cream Dental amLODIPine Besylate 5 MG Tablet Oral Metoprolol Succinate ER 25 MG Tablet Extended Release 24 Hour Oral Prolia , Notes to Pharmacist: *Pick strength-form from [employer] for eRX*fluvoxaMINE Maleate 100 MG Tablet TAKE 1 & 1/2 TABLET BY MOUTH EVERY DAY FOR 90 DAYS Medication List reviewed and reconciled with the patientTaking Denta 5000 Plus 1.1 % Cream Dental Taking amLODIPine Besylate 5 MG Tablet Oral Taking Metoprolol Succinate ER 25 MG Tablet Extended Release 24 Hour Oral Taking Prolia , Notes to Pharmacist: *Pick strength-form from [employer] for eRX*Taking fluvoxaMINE Maleate 100 MG Tablet [...] 9 6127 BEHAV ASSMT W/SCORE & DOCD/STAND [id number] VISIT COMPLEXITY INHERENT TO ONGOING CARE RELATED TO A PATIENT'S SINGLE, SERIOUS CONDITION OR A COMPLEX CONDITION * Follow Up: 3 Months * Billing Information: * Visit Code: [id number] OFFICE OUTPATIENT VISIT 25 MINUTES DETAILED HISTORY AND EXAM/MODERATE MEDICAL DECISION MAKING. * Procedure Codes: 90588 BEHAV ASSMT W/SCORE & DOCD/STAND INSTRUMENT. G2211 VISIT COMPLEXITY INHERENT TO ONGOING CARE RELATED TO A PATIENT'S SINGLE, SERIOUS CONDITION OR A COMPLEX CONDITION. * N FREIGHT FORWARDER Electronically co-signed by Daniel Prasad MD on 06/12/2024 at 08:28 AM OCEAN FREIGHT FORWARDER Sign off status: Completed true * Provider: Gianna De La Torre Date: 08/11/2023 Generated for Florencia hernandez/Rex/Meghana on: 0 10/29/2024 [...]
--- OUTSIDE RECORDS SUMMARY | 2024-10-29 11:23 | XMS_ITS ---
Author Organization [facility] [place] [facility] Address [address] [place] [address] Care Team Providers Care Child Center Assistant Name Role Phone Jamal Garza MD Primary Care Provider Unavailable Africa De La Torre Unavailable [phone] Sujey Childers Unavailable [phone] Allergies No Known Allergies REASON FOR VISIT follow up medication management Medications Medication SIG (Take, Route, Frequency, Duration) Notes Start Date End Date Status Denta 5000 Plus 1.1 % Dental 10/10/2023 Active Prolia *Pick strength-form from [employer] for eRX* 10/10/2023 Active fluvoxaMINE Maleate 100 [...] NoDo you have a medical power of patent attorney?: No Problems Problem Type SNOMED Code ICD Code Onset Dates Problem Status W/U Status Risk Notes Problem Generalized anxiety disorder (53164574) Generalized anxiety disorder (F41.1) Active confirmed Problem Nondependent alcohol abuse in remission (570386520) History of alcohol abuse (F10.11) Active confirmed Problem Recurrent major depression in full remission (44133409) Recurrent major depressive disorder, in full remission (F33.42) Active confirmed Vital Signs Blood pressure systolic 147 mm Hg 02/06/20 24 Blood pressure diastolic 83 mm Hg 024 Heart Rate 68 /min 02/06/2024 Height 61.00 in 02/06/2024 Weight 182 lbs 02/06/2024 BMI 34.38 kg/m2 02/06/2024 Height-cm 154.94 cm 02/06/2024 Weight-kg 82.55 kg 02/06/2024 Encounters Encounter Location Date Provider Diagnosis [facility] [employer] [facility] [address] [address] 02/06/2024 Sujey Childers Generalized anxiety disorder F41.1 [...] Details Follow Up: 4 Months, Reason: Provider Name:Africa johnston, 12/17/2024 11:00:00 AM, [address], [facility] [address], [place], [address], Progress Notes * RAUL FRASERB:1965 (58 yo F)Acc No.[id number]:02/06/2024 Patient: SARAH ROBLEDO Provider: WILFRIDO WILD :1965 A ge:58 Y S ex:Female Date:02/06/2024 [id number] Subjective: * Chief Complaints: * 1 . [...] week. going to dad's birthday libertarian tonight. ETOH: Denies no cannabis or other substance use medical: no changes. Hearing aid (only one-no opening in other ear) note: passed in August 2021- 27 yrs. * ROS: P sychiatric: Patient denies a nxiety, auditory / visual hallucinations, delusions, depressed mood, difficulty sleeping, substance abuse, suicidal thoughts, ingrid, psychosis, panic attacks. * Medical History: P ghada: Current drinker, Generalized anxiety disorder, History of alcohol abuse, Mild recurrent major depression, Normal grief reaction, Obesity, Recurrent major depression in partial remission, Recurrent major depression in remission, Severe recurrent major depression without psychotic features, Unsteady gait, ,. * Surgical History: T onsillectomy and adenoidectomy ([id number]) , Tonsilectomy/adenoids 07/29/1971. * Hospitalization/Major Diagno stic Procedure: D enies Past Hospitalization. * Family History: M radhikarnal Uncle: Depressive [...] NoDo you have a medical power of patent attorney?: No. * Medications: T aking Denta 5000 Plus 1.1 % Cream Dental , Taking amLODIPine Besylate 5 MG Tablet Oral , Taking Metoprolol Succinate ER 25 MG Tablet Extended Release 24 Hour Oral , Taking Prolia , Notes to Pharmacist: *Pick strength-form from [employer] for eRX*, Taking fluvoxaMINE Maleate 100 MG [...] Months * Billing Information: * Visit Code: 27223 OFFICE OUTPATIENT VISIT 15 MINUTES EXPANDED HISTORY AND EXAM/LOW MEDICAL DECISION MAKING. * Procedure Codes: * Sign off status: Completed true * Provider: WILFRIDO WILD Date: 0 02/06/2024 Generated for Florencia hernandez/Rex/Meghana on: 0 10/29/2024 [...]
--- OUTSIDE RECORDS SUMMARY | 2024-10-29 11:24 | XMS_ITS | Patient Health Record ---
Author Organization [facility] As [employer] [facility] Address [address] [place] [address] Care Team Providers Care Toilet Products Molder Name Role Phone Greg RIOS, Jamal Primary Care Provider Unavailable Africa De La Torre Unavailable [phone] Sujey Childers Unavailable [phone] Migration, Provider Unavailable Unavailable Allergies No Known [...] 90 days Active Prolia *Pick strength-form from [employer] for eRX* 10/10/2023 Active Immunizations Vaccine Route Administration Date Status Comme nts Influenza virus vaccine, quadrivalent (IIV4), split virus, 0.25 mL dosage Unknown 05/28/2018 Administered Influenza virus vaccine, quadrivalent (IIV4), split virus, 0.25 mL dosage Unknown 05/10/2020 Administered Influenza virus vaccine, quadrivalent (IIV4), split virus, 0.25 mL dosage Unknown 05/30/2021 Administered Influenza, injectable, MDCK, preservative free Unknown 05/12/2018 Administered Novel [id number], preservative free Unknown 06/01/2019 Administered Novel [id number]-[id number], preservative free Unknown 05/10/2020 Administered [employer] Covid-19 Vac cine 2nd dose Unknown 09/29/2020 [...] received?: High school graduateAre you currently employed?: NoWVivid Games is your employer?: Not workingMarriage and SexualityWhat is your relationship status?: WidowedAre you sexually active?: NoDo you use protection during sex?: NoHow many children do you have?: 0Home and EnvironmentAre there any guns present in your home?: NoAdvance DirectiveDo you have an advance directive?: NoDo you have a medical power of criminal attorney?: No Social History Substance UseDo you [...] NoDo you have a medical power of criminal attorney?: No Problems Problem Type SNOMED Code ICD Code Onset Dates Problem Status W/U Status Risk Notes Problem Generalized anxiety disorder (11929297) Generalized anxiety disorder (F41.1) Active confirmed Problem Nondependent alcohol abuse in remission (982070246) History of alcohol abuse (F10.11) Active confirmed Problem Recurrent major depression in full remission (83054103) Recurrent major depressive disorder, in full remission (F33.42) Active confirmed Vital Signs Heart Rate 71 /min 09/21/2024 Height-cm 154.94 cm 09/21/2024 Blood pressure diastolic 69 mm Hg 09/21/2024 Weight-kg 82.55 kg 09/21/2024 Height 61.00 in 09/21/2024 Blood pressure systolic 113 mm Hg 09/21/2024 Weight 182 lbs 09/21/2024 BMI 34.38 kg/m2 09/21/2024 Encounters [facility]counter [facility] Date [facility] [address] [facility] [address] [place] [address] 02/06/2024 Sujey Childers Generalized anxiety disorder F41.1 ; Recurrent major depressive disorder, in full remission F33.42 and History of alcohol abuse F10.11 [facility] [employer] [place] [id number] [facility] [address] [place] [address] 06/11/2024 Africa De La Torre Generalized anxiety disorder F41.1 ; Recurrent major depressive disorder, in full remission F33.42 and History of alcohol abuse F10.11 [facility] [employer] [address] [facility] [address] [place] [address] 09/21/2024 Africa De La Torre Generalized anxiety disorder F41.1 ; Recurrent major depressive disorder, in full remission F33.42 and History of alcohol abuse F10.11 [facility] [employer] [address] [facility] [address] [place] [address] 12/14/2023 [facility] [address] [facility] [address] [place] [address] 12/15/2023 Provider Migration Assessments Encounter Date Diagnosis [...] in sooner if any concerns arise 09/21/2024 Generalized anxiety disorder (ICD-10 - F41.1) [...] full remission (ICD-10 - F33.42) as above 09/21/2024 Recurrent major depressive disorder, in full remission (ICD-10 - F33.42) as above doing well, a little more emotional lately, but managing overall Continue 100 mg, 1 tablet a day. No change at this time Watch for changes in mood, sleep, behaviors. follow up in 3 months, call and come in sooner if any concerns arise 02/06/2024 History of alcohol abuse (ICD-10 - F10.11) denies alcohol use; avoid 06/11/2024 History of alcohol abuse (ICD-10 - F10.11) remission 09/21/2024 History of alcohol abuse (ICD-10 - F10.11) remission doing well, a little more emotional lately, but managing overall Continue 100 mg, 1 tablet a day. No change at this time Watch for changes in mood, sleep, behaviors. follow up in 3 months, call and come in sooner if any concerns arise Plan Of Treatment Next Appt Details Provider Name:Africa johnston, 12/17/2024 11:00:00 AM, [address] [facility] [address] [address], [facility] [address], [place], [address], Insurance Providers Payer Name Payer Address Payer Phone Subscriber Number Group Number Insured Name Patient Relationship to Insured Coverage Start Date Coverage End Date [employer] Medicare Replacement/ Advantage - Hmo [address] [address] [place] [address] [id number] SARAH FRASER Self - patient is the [...] Surgical History Surgery Date(Month/Year) Tonsillectomy and adenoidectomy ([id number]) Tonsilectomy/adenoids 07/29/1971
== END 2024-10-29 10:33 | disposition home or self-care (01) ==
LOC: ANHLAB 10:34
PROVIDERS: PCP Family Medicine; Visit Provider Internal Medicine Hematology & Oncology
DX: E78.5 Hyperlipidemia, unspecified (principal); I10 Essential (primary) hypertension
CPT/HCPCS: 36415; 80053

== ENCOUNTER 2025-05-13 13:08 | Outpatient (CLI) | payer MEDICARE, SELFPAY ==
--- NOTE | ~2025-05-13 | CT_ITS ---
EXAMINATION:CT lung screening DATE: 05/13/2025 13:24 INDICATION: Personal history of nicotine dependence. TECHNIQUE: Computed tomography (CT) of the chest was performed without intravenous contrast. Automated exposure control and iterative reconstruction technique were employed. The dose-length product (DLP) was 142.76 mGy-cm. COMPARISON: Chest CT 05/06/2024 FINDINGS: There is mild scarring in paraspinal right lower lobe. There is mild atelectasis in right upper lobe. There is a stable 4 mm nodule in left upper lobe. There is a stable 6 mm groundglass nodule in right upper lobe. No pleural effusion. Cardiomegaly is noted. There are coronary artery calcifications. No pericardial effusion. The central pulmonary arteries are enlarged, consistent with pulmonary arterial hypertension. There is a small sliding hiatal hernia. There is severe thoracic spondylosis. IMPRESSION: 1. Lung-RADS category 2: Benign appearance or behavior. Continue annual screening with noncontrast low-dose chest CT in 12 months. Reviewed, dictated and finalized at location E. IMPRESSION: 1. Lung-RADS category 2: Benign appearance or behavior. Continue annual screeni ng with noncontrast low-dose chest CT in 12 months.
== END 2025-05-13 13:09 | disposition home or self-care (01) ==
LOC: MICIMG 13:10
PROVIDERS: PCP Family Medicine; Visit Provider Family Medicine
DX: Z12.2 Encounter for screening for malignant neoplasm of respiratory organs (principal); Z87.891 Personal history of nicotine dependence
CPT/HCPCS: 71271